=== PATIENT | female | born 2000 | race Hispanic/Latino ===

== ENCOUNTER 2024-01-06 02:50 | Emergency (ER) | payer OTHER, SELFPAY ==
[2024-01-06 02:52] VITALS: BP 123/84
[2024-01-06 03:16] VITALS: BMI 25.9
[2024-01-06] MEDS: TYLENOL 1000 MG PO (03:43)
[2024-01-06 03:47] LABS: COVID-19 Antigen Positive (Negative)
--- NOTE | 2024-01-06 04:01 | ED.GENMED ---
History of Present Illness
<EN Griffith - Last Filed: 01/06/24 04:10>
General
Chief Complaint: Cold/Flu/URI Symptoms
Source: patient
Exam Limitations: none
Time Seen by Provider: 01/06/24 03:45
Nursing documentation reviewed up to this point in time: agreed with
Travel History
Have you had any contact with someone who has COVID-19?: No
Do you have any symptoms of coronavirus? Fever > 100 degrees, chills, cough, shortness of breath, sore throat, loss of taste or smell, muscle aches, or headache?: No
History of Present Illness
History of Present Illness:
23 y/o F presents to ED complaining of feeling hot, sweaty, congested, headache, slight cough, body aches, and fever x 1 day. Patient is concerned symptoms are related to mold in her apartment. She called poison control who advised her to come to
ED. She is 9 weeks and has not yet had her first appointment. Patient does not have an established OBGYN but [facility] will get [facility]. She denies diarrhea,
abdominal pain, sore throat, ear pain, chest pain, palpitations, dizziness or SOB.
If applicable-neuro sx onset
Onset of symptoms known: Yes
Date of onset of symptoms: 01/05/24
Past History
<EN Griffith - Last Filed: 01/06/24 04:10>
Past History
ED Past Medical History: None
ED Past Surgical History: None
Social History
Tobacco: Non-smoker
Alcohol: None
Drug: None
Review of Systems
<EN Griffith - Last Filed: 01/06/24 04:10>
Review of Systems
Allergies reviewed?: Yes
All Other Systems: ROS reviewed and negative except as documented in HPI and ROS
Constitutional: Reports fever and chills
EENT: Reports runny nose
Respiratory: Reports cough
Cardiac: Reports diaphoresis
ABD/GI: Reports no symptoms
: Reports no symptoms
Musculoskeletal: Reports muscle pain and other (body aches)
Skin: Reports no symptoms
Neurological: Reports headache
Endocrine: Reports no symptoms
Hematologic/Lymphatic: Reports no symptoms
Psychiatric: Reports no symptoms
Phy Exam
<EN Griffith - Last Filed: 01/06/24 04:10>
General Physical Exam
General Presentation: well appearing and no apparent distress
General age: appears stated age
General Skin: warm and dry
General Habitus: normal
General Mental: alert
General Hydration: appears well hydrated
ENT Exam
ENT Exam: EOMI, TM's normal, pharynx normal and neck supple
Eye Exam
Eye Exam: PERRL, EOMI and conjunctiva normal
Cardiovascular Exam
Cardiovascular Exam: regular rate/rhythm, no edema, no gallop, no murmur and normal peripheral pulses
Pulmonary Exam
Pulmonary Exam: lungs clear, no respiratory distress, no rales, no crackles, no rhonchi and no wheezing
Gastrointestinal Exam
Gastrointestinal Exam: normal bowel sounds
Neurological Exam
Neurological Exam: alert and oriented x3
Musculoskeletal Exam
Musculoskeletal Exam: full ROM and neuro vasc intact
Skin Exam
Skin Exam: normal color, warm/dry and no rash
Psychiatric Exam
Psychiatric Exam: normal mood/affect
Course
<EN Griffith - Last Filed: 01/06/24 04:10>
Orders/Labs/Results
Orders:
Orders
01/06/24 02:58
Influenza A+B Rapid Molecular Urgent
ISMA[facility] Source: Nasal Swab
Specimen Description:
Date Specimen was Collected: 01/06/24
Time Specimen was Collected: 02:56
01/06/24 03:33
COVID-19 Antigen Urgent
Source: Nasal Swab
Comment: .
01/06/24 03:40
Acetaminophen [Tylenol] 1,000 mg .ROUTE .STK-MED ONE
01/06/24 03:42
Acetaminophen [Tylenol] 1,000 mg PO NOW STA
Abnormal Lab Results
01/06/24
03:33
SARS-CoV-2 Antigen Positive A
(Negative)
Vital Signs
Initial and Last Documented VS:
Initial Vital Signs
Temp Pulse Resp BP Pulse Ox
100.2 F 133 24 123/84 100
01/06/24 02:52 01/06/24 02:52 01/06/24 02:52 01/06/24 02:52 01/06/24 02:52
Last Documented Vital Signs
Temp Pulse Resp BP Pulse Ox
99.8 F 95 20 108/67 98
01/06/24 04:50 01/06/24 04:50 01/06/24 04:50 01/06/24 04:50 01/06/24 04:50
<Daysi Gonzalez, DO - Last Filed: 01/06/24 05:21>
Orders/Labs/Results
Orders:
Orders
01/06/24 02:58
Influenza A+B Rapid Molecular Urgent
ISMA[facility] Source: Nasal Swab
Specimen Description:
Date Specimen was Collected: 01/06/24
Time Specimen was Collected: 02:56
01/06/24 03:33
COVID-19 Antigen Urgent
Source: Nasal Swab
Comment: .
01/06/24 03:40
Acetaminophen [Tylenol] 1,000 mg .ROUTE .STK-MED ONE
01/06/24 03:42
Acetaminophen [Tylenol] 1,000 mg PO NOW STA
Abnormal Lab Results
01/06/24
03:33
SARS-CoV-2 Antigen Positive A
(Negative)
Vital Signs
Initial and Last Documented VS:
Initial Vital Signs
Temp Pulse Resp BP Pulse Ox
100.2 F 133 24 123/84 100
01/06/24 02:52 01/06/24 02:52 01/06/24 02:52 01/06/24 02:52 01/06/24 02:52
Last Documented Vital Signs
Temp Pulse Resp BP Pulse Ox
99.8 F 95 20 108/67 98
01/06/24 04:50 01/06/24 04:50 01/06/24 04:50 01/06/24 04:50 01/06/24 04:50
<EN Griffith - Last Filed: 01/06/24 04:10>
MDM/Problems Addressed
Differential Diagnosis Includes:
COVID
Flu
Viral Illness
<Daysi Gonzalez DO - Last Filed: 01/06/24 05:21>
*Pulse Oximetry
Patient hypoxic: no
*Critical Care Note
Total Time (30-74mins, 75-104mins- exclusive of procedures): Not Applicable
ED Attending Note
<EN Griffith - Last Filed: 01/06/24 04:10>
-
Portions of this chart may have been created with voice recognition software.� Occasional wrong word or��sound alike� substitutions may have occurred due to the inherent limitations of voice recognition software.
<Daysi Gonzalez DO - Last Filed: 01/06/24 05:21>
ED Attending Note
Patient seen and examined by attending physician: Yes
I performed the substantive portion of visit, reviewed & personally made and approve the management plan that is documented in note by myself or JASMYN.: Yes
I performed a history and physical exam of patient and discussed management with resident, I reviewed resident's note and agree with documented findings and plan of care.: Yes
ED Attending Note:
This is a 23-year-old female who states she is currently 9 weeks , last normal menstrual period November 02. Several positive home test. Overall feeling well and has an [facility].
She did suffer a spontaneous miscarriage at approximately 4 to 5 weeks in September.
Since late Friday night, early Friday morning patient complains of URI symptoms, mild in nature that has gotten progressively worse with cough, nasal congestion, mild sore throat and onset of fever tonight.
No known close contacts with similar symptoms. She has had an intermittent dry cough but denies shortness of breath, denies abdominal pain, no vaginal discharge no bleeding.
She has not taken anything for symptoms.
GENERAL: 23-year-old female appears her stated age, bright and alert, pleasant, appears in no acute distress. Respirations are easy nonlabored. Rare dry cough is noted.
EYE: anicteric
NECK: Supple, nontender, no meningismus, no significant adenopathy.
ENT: Facemask in place.
CARDIAC: Regular rate and rhythm. no murmur.
LUNGS: Clear breath sounds bilaterally, no acute respiratory distress, no wheezes/rales/rhonchi
ABDOMEN: Soft, nondistended, without focal tenderness, no r/g, no cvat. normoactive BS.
NEUROLOGICAL: Alert and oriented x3, no focal neuro deficits. Gait is steady.
SKIN: Warm and dry, normal color, skin intact. No rash.
MUSCULOSKELETAL: No C/C/E. peripheral pulses are full and equal b/l. No palpable tenderness.
PSYCH: Normal and appropriate interaction.
Patient presents with acute URI.
COVID-19 antigen is positive. Rapid flu is negative.
Overall nontoxic in appearance, lungs are clear to auscultation, no respiratory distress, pulse ox 100% on room air.
She is currently 9 weeks , thus far no complications, denies abdominal pain, denies vaginal bleeding.
Will give a dose of Tylenol for fever and continue to observe.
As patient is overall well in appearance, currently in first trimester would recommend holding off on Paxlovid.
Otherwise recommend supportive measures, staying well-hydrated on a daily basis, continuing Tylenol as needed for aches, fever.
Recommend home quarantine for 5 days from symptom onset and at least 2 days fever free without antipyretics.
Patient has [facility] appointment [facility] for [facility], recommend she reschedule this for next week.
Will refer to [facility] for follow-up as well.
Return precautions discussed.
Discharge Plan
Departure
Patient Disposition: Home (Routine Discharge)
Date of Disposition: 01/06/24
Time of Disposition: 05:15
Patient with high blood pressure during this ER visit?: No
Condition: Good
Discharge Problem:
COVID-19
Instructions: COVID-19 and ED
Prescriptions:
No Action
No Current Medications
0
Referrals:
Paige Piedra MD [Active] - Call in 1-3 days for appt
Sarah Gonzalez CRNP [Family Provider] - Call in 1-3 days for appt
Interventions
Interventions:
*Risk Screen - Suicide Last Done: 01/06/24 02:52
*General Assessment Last Done: 01/06/24 03:18
*Neglect/Abuse Screening Last Done: 01/06/24 02:52
ED- Fall Risk Assessment Last Done: 01/06/24 03:18
*ED COVID-19 Vaccine History Last Done: 01/06/24 03:17
ED-EENT Assessment Last Done: 01/06/24 03:18
ED- Pulmonary Assessment Last Done: 01/06/24 03:18
ED-Skin Assessment Last Done: 01/06/24 03:18
[2024-01-06 04:50] VITALS: BP 108/67
[2024-01-06 05:27] VITALS: BP 125/62
== END 2024-01-06 05:43 | disposition home or self-care (01) ==
LOC: EMR 02:50
PROVIDERS: EMERGENCY PHYSICIAN Emergency Medicine; FAMILY PHYSICIAN Nurse Practitioner Family
DX: O98.511 Other viral diseases complicating pregnancy, first trimester (principal); U07.1 COVID-19; Z3A.09 9 weeks gestation of pregnancy
CPT/HCPCS: 99282; 87502; 87811